=== PATIENT | female | born 1985 | race Caucasian/White ===

== ENCOUNTER → 2016-10-13 | Outpatient (CLI) | payer MEDICARE, OTHER ==
[2015-08-04 22:30] VITALS: BP 137/76
[~2016-10-13] MED LIST: DIPH25CA58 PO; DIVA500T9 PO; MIRT15TA3 PO; TRAZ50TA15 PO
--- NOTE | 2016-10-13 12:03 | KCIC ---
PROCEDURE Abdomen ultrasound HISTORY Diffuse abdominal pain COMPARISON None FINDINGS Multiple sonographic images of the abdomen are submitted. Exam is limited due to patient's body habitus. Pancreas is not well visualized due to bowel gas, pancreatic head visualized. Common bile duct near the head of the pancreas is estimated on the order 1.2 centimeters. There is coarsening of the hepatic echotexture. Right lobe of the liver measured 15.9 centimeters longitudinal. There may be intrahepatic biliary ductal dilatation although poorly demonstrated. There are echogenic non shadowing foci in the gallbladder lumen likely due to non shadowing gallstones. Gallbladder wall thickness is within normal limits. Gallbladder is not dilated. There is no significant pericholecystic fluid demonstrated. Technologist reports a positive sonographic Pettit's sign. Right kidney measured 4 by 10.2 x 3.8 centimeters, no hydronephrosis. Visualized abdominal aortic caliber is within normal limits up to 1.9 centimeters. There is segmental visualization of the inferior vena cava. Spleen measured 12.2 centimeters. Left kidney measured 9.9 x 4.9 by 4 centimeters, no hydronephrosis. No free fluid is demonstrated. IMPRESSION 1. Exam is limited due to patient's body habitus and bowel gas. There appears to be extrahepatic and possibly intrahepatic biliary ductal dilatation. Echogenic non shadowing foci in the gallbladder lumen are likely due to gallstones. There is no significant pericholecystic fluid or gallbladder wall thickening although technologist reports a positive sonographic Pettit's sign. 2. There is hepatic steatosis. Electronically signed by: Nikita Hurst MD (Oct 13, 2016 12:02:02)
== END | disposition home or self-care (01) ==
LOC: KCIC US 08:43
PROVIDERS: ATTEND Family Medicine
DX: R10.9 Unspecified abdominal pain (principal); K76.0 Fatty (change of) liver, not elsewhere classified
CPT/HCPCS: 76700

== ENCOUNTER → 2017-05-04 | Outpatient (CLI) | payer MEDICARE, OTHER ==
[2015-08-04 22:30] VITALS: BP 137/76
--- NOTE | 2017-05-04 11:01 | RAD ---
MRI abdomen Indication: Abdominal pain. No history of surgeries. Ultrasound abdomen from 10/13/2016 showed questionable biliary ductal dilation and gallstones. Technique: Axial in and out of phase, axial and coronal T2, axial and coronal T2 fat sat weighted image sequences were obtained without IV contrast. 2-D and 3-D MRCP performed with respiratory gating. Comparison: Previous ultrasound of abdomen from 10/13/2016 Findings: Heart is normal in size. Trace bilateral pleural effusions. No pericardial effusion. There is no significant signal drop on out of phase imaging when compared to in phase to suggest hepatic steatosis. The liver is normal in morphology without abnormal T2 signal. Spleen is mildly enlarged in size measuring 14 cm without abnormal T2 signal. Gallstone noted. No pericholecystic fluid or gallbladder wall thickening. The other is nondistended. There is no intrahepatic biliary duct dilation. CBD measures 5 mm with smooth distal tapering without filling defects to suggest obstructing stones. Adrenal glands show no nodularity. T2 corticomedullary differentiation is preserved in the kidneys. Pancreas demonstrate no T2 signal abnormality. No pancreatic duct dilation. No peripancreatic inflammatory changes or fluid collections. Intraosseous hemangioma within T4 vertebral body. No suspicious T2 signal in the bones. Impression: 1. Cholelithiasis without acute cholecystitis. 2. No intrahepatic or extrahepatic biliary duct dilation. No choledocholithiasis. 3. Mild splenomegaly, nonspecific.
== END | disposition home or self-care (01) ==
LOC: MRI 07:48
PROVIDERS: ATTEND Internal Medicine Gastroenterology
DX: K80.20 Calculus of gallbladder without cholecystitis without obstruction (principal); R16.1 Splenomegaly, not elsewhere classified; J90 Pleural effusion, not elsewhere classified; R93.8 Abnormal findings on diagnostic imaging of other specified body structures
CPT/HCPCS: 74181

== ENCOUNTER 2017-06-21 06:06 | Observation (INO) | payer MEDICARE, OTHER ==
[~2017-06-21] VITALS: Ht 167.6 cm; Wt 118.0 kg
[2017-06-21] VITALS (10 sets, daily range): BP systolic 102–142; BP diastolic 57–85
[~2017-06-21 06:06] MED LIST changes: +ACET650T26 PO; +FENO150C3 PO; +FLUT16SP NS; +HYDR50TA PO; +LEVO1TAB33 PO; +MUPI22OI2 TP; +OMEP20TA8 PO; +PALI117D IM; +TOPI100T8 PO; +ZIPR40CA3 PO
[2017-06-21] MEDS ORDERED: HYDROmorphone 2 MG/ML VIAL IV PRN ×2 (07:00→09:00)
[2017-06-21] MEDS ORDERED: fentaNYL PF VIAL 100 MCG/2 ML VIAL IV PRN ×2 (07:00)
[2017-06-21] MEDS ORDERED: IV RINGERS,LACTATED 1000ML 1,000 ML IV SCH (07:00)
[2017-06-21] MEDS ORDERED: PROCHLORPERAZINE 10 MG/2 ML VIAL. IV PRN (07:00)
[2017-06-21] MEDS ORDERED: MORPHINE SULFATE 4 MG/ML DISP.SYRIN. IV PRN (07:00)
[2017-06-21] MEDS ORDERED: LIDOCAINE 1% PF 2 ML VIAL. ID PRN (07:00)
[2017-06-21] MEDS ORDERED: ONDANSETRON PF 4 MG/2 ML VIAL. ONE (07:17)
[2017-06-21] MEDS ORDERED: LIDOCAINE 2% PF Vial for OR 5 ML VIAL. ONE (07:17)
[2017-06-21] MEDS ORDERED: MIDAZOLAM HCL/PF 2 MG/2 ML VIAL. ONE (07:17)
[2017-06-21] MEDS ORDERED: DEXAMETHASONE SOD PHOS 20 MG/5 ML VIAL. ONE (07:17)
[2017-06-21] MEDS ORDERED: PROPOFOL 20 ML IV ONE (07:17)
[2017-06-21] MEDS ORDERED: ROCURONIUM 50 MG/5 ML VIAL. ONE (07:18)
[2017-06-21] MEDS ORDERED: fentaNYL PF VIAL 100 MCG/2 ML VIAL ONE (07:18)
[2017-06-21] MEDS ORDERED: SURGICEL HEMOSTAT 4X8 EACH. ONE (07:23)
[2017-06-21] MEDS ORDERED: BUPIVAC MPF-EPI 0.5%-1:200000 30 ML VIAL. ONE (07:23)
[2017-06-21] MEDS ORDERED: IOHEXOL 300 MG/ML 50 ML VIAL. ONE (07:23)
[2017-06-21 07:42] LABS: NEG OBC UR NEG; POS OBC UR POS
[2017-06-21] MEDS ORDERED: ESMOLOL 100 MG/10 ML VIAL. IV ONE (08:06)
[2017-06-21] MEDS ORDERED: SEVOFLURANE 61 TO 120 MINUTES. IH ONE (08:25)
[2017-06-21] MEDS ORDERED: GLYCOPYRROLATE 1 MG/5 ML VIAL. ONE (08:31)
[2017-06-21] MEDS ORDERED: NEOSTIGMINE 10 MG/10 ML VIAL. ONE (08:31)
--- NOTE | 2017-06-21 08:31 | RAD ---
EXAM: Intraoperative cholangiogram. HISTORY: Intraoperative cholangiogram with cholecystectomy. COMPARISON: None. FINDINGS: 2 fluoroscopic images are obtained intraoperatively during injection of the cystic duct remnant after cholecystectomy. There are no filling defects to suggest retained stones. The common duct is not dilated. Fluoroscopy time 0.3 minutes. IMPRESSION: No evidence of retained stones.
[2017-06-21] MEDS ORDERED: KETOROLAC 30 MG/ML INJ FOR OR. INJ ONE (08:34)
--- NOTE | 2017-06-21 08:50 | PDOC4 ---
Operative Note Operative Note Operative Note: Preoperative Diagnosis: Symptomatic cholelithiasis Postoperative Diagnosis: Same Procedure: Laparoscopic cholecystectomy with intraoperative cholangiogram Surgeons: Gaudencio Anesthesia: GenBelinda Estimated Blood Loss: 10 mL Specimen: Gallbladder to pathology Drains: None Complications: None Indications: The patient is a 32-year-old female who is been experiencing recurrent upper abdominal pain consistent with biliary colic. Her evaluation identified gallstones. Surgical treatment was offered by means of a laparoscopic cholecystectomy. The risks of surgery were discussed which include bleeding, infection, bile duct injury, bile leak, pain, the potential for additional surgeries or procedures. The patient understands and would like to proceed. Description: The patient was taken to the operating room and laid supine on the operating table. General anesthesia was performed. The abdomen was prepped with ChloraPrep and draped in a standard surgical fashion. A small infraumbilical incision was made with a scalpel. The Veress needle was then inserted and a pneumoperitoneum was then created. A 5 mm trocar was then inserted and the laparoscope was introduced. In the upper midabdomen a 5 mm trocar was inserted and in the right upper quadrant two 2.3 mm mini lap graspers were inserted. The gallbladder was retracted cephalad. The cystic duct was dissected free from surrounding tissues. One clip was placed on the duct near the gallbladder junction. An opening was made in the duct and a cholangiocatheter placed within and secured with a clip. Using contrast dye and fluoroscopy an intraoperative cholangiogram was performed that appeared unremarkable. The clip and catheter were then withdrawn. Three clips were placed on the cystic duct and it was divided. The cystic artery was then identified, dissected free, doubly clipped and divided as well. The gallbladder was then mobilized away from the liver with cautery. The umbilical 5 millimeter trocar was exchanged for an 11 millimeter trocar. The gallbladder was then placed in an endoscopic bag and extracted at the umbilical trocar site. The fascia there was closed with an 0 Vicryl suture. All blood and irrigation fluid was suctioned and hemostasis was good. The remaining ports were removed and the pneumoperitoneum was relieved. The skin incisions were injected with half percent Marcaine with epinephrine, and all were closed using 4-0 Monocryl suture. Steri-Strips and dressings were then applied. The patient tolerated the procedure well and was sent to the recovery room in stable condition. At the end of the case all counts were correct. LUDWIN JONES MD Jun 21, 2017 08:50
[2017-06-21] MEDS ORDERED: ONDANSETRON PF 4 MG/2 ML VIAL. IV PRN (09:00)
[2017-06-21] MEDS ORDERED: DEXTROSE 50% 25 GM / 50ML DISP.SYRIN. IV PRN (09:00)
[2017-06-21] MEDS ORDERED: KETOROLAC 30 MG/ML INJ. IV PRN (09:00)
[2017-06-21] MEDS ORDERED: LEVONORGESTREL ETH ESTRADIOL PO SCH (09:00)
[2017-06-21] MEDS ORDERED: 0.9 % SODIUM CHLORIDE 10 ML DISP.SYRIN. IV PRN (09:00)
[2017-06-21] MEDS: ZIPRASIDONE 20 MG CAPSULE PO SCH (10:30)
[2017-06-21] MEDS: hydrOXYzine PAMOATE 25 MG CAPSULE PO SCH ×3 (10:30→20:25)
[2017-06-21] MEDS: TOPIRAMATE 100 MG TABLET. PO SCH ×2 (11:00→20:25)
[2017-06-21] MEDS: PANTOPRAZOLE 40 MG TABLET.DR. PO SCH (11:27)
[2017-06-21] MEDS ORDERED: GUAI600T47 PO (11:38)
[2017-06-21] MEDS ORDERED: HYDR25TA PO ×2 (11:38)
[2017-06-21] MEDS ORDERED: POLY17PO29 PO (11:38)
[2017-06-21] MEDS ORDERED: NYST15PO9 TP (11:38)
[2017-06-21] MEDS ORDERED: IBUP-1007 PO (11:38)
[2017-06-21] MEDS ORDERED: CETI10TA16 PO (11:38)
[2017-06-21] MEDS: FENOFIBRATE,MICRONIZED 134 MG CAPSULE PO SCH (12:58)
[2017-06-21] MEDS: HYDROcodone/APAP 5/325MG 1 TAB TABLET PO PRN ×3 (12:58→20:25)
[2017-06-21] MEDS: FLUTICASONE 50MCG/NASAL SPRAY 16GM BOTTLE. NS SCH (12:59)
[2017-06-21] MEDS ORDERED: FLU VACC QS2017-18 (36MOS+)/PF 0.5 ML SYRINGE. VAX IM ONE (13:00)
[2017-06-21] MEDS: IV RINGERS,LACTATED 1000ML 1,000 ML IV SCH (13:00)
[2017-06-22] MEDS: IV RINGERS,LACTATED 1000ML 1,000 ML IV SCH ×2 (00:48→11:40)
[2017-06-22 03:00] VITALS: BP 117/53
[2017-06-22] MEDS: HYDROcodone/APAP 5/325MG 1 TAB TABLET PO PRN ×3 (03:55→10:04)
[2017-06-22 07:00] VITALS: BP 124/70
[2017-06-22] MEDS: ZIPRASIDONE 20 MG CAPSULE PO SCH (09:01)
[2017-06-22] MEDS: FENOFIBRATE,MICRONIZED 134 MG CAPSULE PO SCH (09:01)
[2017-06-22] MEDS: PANTOPRAZOLE 40 MG TABLET.DR. PO SCH (09:01)
[2017-06-22] MEDS: hydrOXYzine PAMOATE 25 MG CAPSULE PO SCH (09:01)
[2017-06-22] MEDS: TOPIRAMATE 100 MG TABLET. PO SCH (09:01)
[2017-06-22] MEDS: FLUTICASONE 50MCG/NASAL SPRAY 16GM BOTTLE. NS SCH (09:05)
--- NOTE | 2017-06-22 10:14 | PDOC ---
CARMELO ALAS VACUUM WORKER 06/22/17 1014: SURGICAL PROGRESS NOTE Subjective tolerating diet incisional pain no n/v Vital Signs Vital Signs Date Time Temp Pulse Resp B/P (MAP) Pulse Ox O2 Delivery O2 Flow Rate FiO2 06/22/17 10:04 Room Air 06/22/17 07:00 98.1 82 18 124/70 (88) 98 98.1 06/21/17 09:07 10 I&O Intake and Output 06/22/17 07:00 Intake Total 4798 ml Output Total 135 ml Balance 4663 ml Intake Oral 760 ml IV Total 3010 ml Other 1028 ml Output Urine Total 125 ml Estimated Blood Loss 10 ml # Voids 8 General: Alert, Oriented X3, Cooperative, No acute distress Abdomen: Soft, Other (lap site dressings intact, incisional TTP) Labs Laboratory Tests Test 06/21/17 06:40 06/21/17 11:32 06/21/17 16:53 06/21/17 21:34 Urine Test Negative (NEG) Glucose (Fingerstick) 103 mg/dL (70-99) 140 mg/dL (70-99) 112 mg/dL (70-99) Test 06/22/17 07:40 Glucose (Fingerstick) 80 mg/dL (70-99) Laboratory Tests Test 06/21/17 11:32 06/21/17 16:53 06/21/17 21:34 06/22/17 07:40 Glucose (Fingerstick) 103 mg/dL (70-99) 140 mg/dL (70-99) 112 mg/dL (70-99) 80 mg/dL (70-99) Problem List s/p lap daniel DC home FU 2 weeks Problems: LUDWIN JONES MD 06/22/17 1223: SURGICAL PROGRESS NOTE Assessment/Plan Agree with above Problems: CARMELO ALAS APRN Jun 22, 2017 10:14 LUDWIN JONES MD Jun 22, 2017 12:23
[2017-06-22] MEDS ORDERED: HYDR-971 PO (10:27)
[2017-06-22 11:00] VITALS: BP 115/72
--- NOTE | 2017-06-22 14:22 | PATHOLOGY ---
PATHOLOGY REPORT * * * * * * * * FINAL DIAGNOSIS: Gallbladder, laparoscopic cholecystectomy: - Cholesterolosis. - Chronic cholecystitis. COMMENT: There are no calculi identified within the gallbladder lumen or specimen container. There is no evidence of malignancy. (JPM:; 06/22/2017) REPORT ELECTRONICALLY SIGNED BY: Gary Lemons M.D. DATE/TIME: 06/22/2017 14:21 * * * * * * * * GROSS PATHOLOGY: Received in formalin labeled "Olivia Paulson, gallbladder sac with contents," is a 6.0 x 2.5 x 1.8 cm, intact gallbladder with light pink to heath, highly vascular serosal surfaces. Opening the gallbladder reveals a green, velvety mucosa, rippled with yellow highlights, and an average wall thickness of 0.2 cm. Calculi are not present (upon filtration of the specimen container and contents) and no masses are noted grossly. Medical Office Assistant sections from the body and fundus are submitted along with the proximal margin in cassette A1. (TSD; 06/21/2017) INITIAL CPT CODE(S): A; 22580 Professional services performed [place] [facility] [address] Technical services performed by [facility] at [address] [place] [address]. SPECIMEN(S) RECEIVED: A.Gallbladder sac with contents CLINICAL HISTORY: Gallstones PATIENT: OLIVIA PAULSON /AGE: 601/13/1985 (Age: 32) PATIENT #: [id number] ALT CASE #: SPECIMEN COLLECTION DATE: 06/21/2017 SPECIMEN RECEIVED DATE: 06/21/2017 [facility] - [address] [place] [address] - PHONE: [phone] * * * END OF REPORT * * *
--- NOTE | 2017-06-28 12:00 | PDOC3 ---
Discharge Summary Date of Admission: Jun 21, 2017 Date of Discharge: Jun 22, 2017 Follow-Up: Other (2 weeks) Admitting Diagnosis comment: symptomatic cholelithiasis Problems: FINAL DIAGNOSIS symptomatic cholelithiasis Brief Hospital Course Ms. Fox is a 32 old female who presented with symptomatic cholelithiasis. She underwent laparoscopic cholecystectomy with intraoperative cholangiogram. Postoperatively tolerating diet, ambulating, and urinating. Ready for discharge home. CONDITION AT DISCHARGE: Stable Discharge Medications Current Medications Fentanyl Citrate (Fentanyl 2ml Vial) 25 mcg PRN Q5MIN PRN IV MILD PAIN; Start 06/21/17 at 07:00; Stop 06/21/17 at 13:10; Status DC Fentanyl Citrate (Fentanyl 2ml Vial) 50 mcg PRN Q5MIN PRN IV MODERATE PAIN Last administered on 06/21/17 09:19; Start 06/21/17 at 07:00; Stop 06/21/17 at 13:10; Status DC Morphine Sulfate 1 mg PRN Q10MIN PRN IV SEVERE PAIN; Start 06/21/17 at 07:00; Stop 06/21/17 at 13:13; Status DC Ringer's Solution 1,000 ml @ 30 mls/hr Q24H IV Last administered on 06:49; Start 06/21/17 at 07:00; Stop 06/21/17 at 18:59; Status DC Lidocaine HCl (Xylocaine-Mpf 1% Vial) 2 ml PRN 1X PRN ID PRIOR TO IV START; Start 06/21/17 at 07:00; Stop 06/21/17 at 13:11; Status DC Hydromorphone HCl (Dilaudid) 0.5 mg PRN Q10MIN PRN IV SEV PAIN, Second choice; Start 06/21/17 at 07:00; Stop 06/21/17 at 13:11; Status DC Prochlorperazine Edisylate (Compazine) 5 mg PACU PRN PRN IV NAUSEA, MRX1; Start 06/21/17 at 07:00; Stop 06/21/17 at 13:13; Status DC Levofloxacin/ Dextrose 150 ml @ 100 mls/hr 1X PREOP PRN IV PRIOR TO PROCEDURE Last administered on 06/21/17 07:49; Start 06/21/17 at 06:00; Stop 06/21/17 at 13:15; Status DC Dexamethasone Sodium Phosphate (Decadron) 20 mg STK-MED ONCE .ROUTE ; Start at 07:17; Stop 06/21/17 at 07:18; Status DC Ondansetron HCl (Zofran) 4 mg STK-MED ONCE .ROUTE ; Start 06/21/17 at 07:17; Stop 06/21/17 at 07:18; Status DC Propofol 20 ml @ As Directed STK-MED ONCE IV ; Start 06/21/17 at 07:17; Stop 06/21/17 at 07:18; Status DC Lidocaine HCl (Lidocaine Pf 2% Vial) 5 ml STK-MED ONCE .ROUTE ; Start 06/21/17 at 07:17; Stop 06/21/17 at 07:18; Status DC Midazolam HCl (Versed) 2 mg STK-MED ONCE .ROUTE ; Start 06/21/17 at 07:17; Stop 06/21/17 at 07:18; Status DC Fentanyl Citrate (Fentanyl 2ml Vial) 100 mcg STK-MED ONCE .ROUTE ; Start at 07:18; Stop 06/21/17 at 07:19; Status DC Rocuronium [place] (Zemuron) 50 mg STK-MED ONCE .ROUTE ; Start 06/21/17 at 07: 18; Stop 06/21/17 at 07:19; Status DC Iohexol (Omnipaque 300 Mg/ml) 50 ml STK-MED ONCE .ROUTE Last administered on 07:26; Start 06/21/17 at 07:23; Stop 06/21/17 at 07:24; Status DC Bupivacaine HCl/ Epinephrine Bitart (Sensorcain-Mpf Epi 0.5%-1:[id number]) 30 ml STK -MED ONCE .ROUTE Last administered on 06/21/17 07:26; Start 06/21/17 at 07: 23; Stop 06/21/17 at 07:24; Status DC Cellulose 1 each STK-MED ONCE .ROUTE ; Start 06/21/17 at 07:23; Stop 06/21/17 at 07:24; Status DC Esmolol HCl (Brevibloc) 100 mg STK-MED ONCE IV ; Start 06/21/17 at 08:06; Stop 06/21/17 at 08:07; Status DC Sevoflurane (Ultane) 60 ml STK-MED ONCE IH ; Start 06/21/17 at 08:25; Stop at 08:26; Status DC Neostigmine Methylsulfate (Bloxiverz) 10 mg STK-MED ONCE .ROUTE ; Start at 08:31; Stop 06/21/17 at 08:32; Status DC Glycopyrrolate (Robinul) 1 mg STK-MED ONCE .ROUTE ; Start 06/21/17 at 08:31; Stop 06/21/17 at 08:32; Status DC Ketorolac Tromethamine (Toradol For Or Only) 30 mg STK-MED ONCE INJ ; Start at 08:34; Stop 06/21/17 at 08:35; Status DC Sodium Chloride (Normal Saline Flush) 3 ml QSHIFT PRN IV AFTER MEDS AND BLOOD DRAWS; Start 06/21/17 at 09:00; Stop 06/22/17 at 14:59; Status DC Dextrose (Dextrose 50%-Water Syringe) 12.5 gm PRN Q15MIN PRN IV SEE COMMENTS; Start 06/21/17 at 09:00; Stop 06/22/17 at 14:59; Status DC Acetaminophen/ Hydrocodone Bitart (Lortab 5/325) 1 tab PRN Q4HRS PRN PO MILD PAIN Last administered on 06/22/17 03:55; Start 06/21/17 at 09:00; Stop at 14:59; Status DC Acetaminophen/ Hydrocodone Bitart (Lortab 5/325) 2 tab PRN Q4HRS PRN PO MODERATE PAIN, SEVERE PAIN Last administered on 06/22/17 10:04; Start at 09:00; Stop 06/22/17 at 14:59; Status DC Ketorolac Tromethamine (Toradol) 30 mg PRN Q6HRS PRN IV MODERATE PAIN Last administered on 06/21/17 15:36; Start 06/21/17 at 09:00; Stop 06/22/17 at 14 :59; Status DC Hydromorphone HCl (Dilaudid) 0.2 mg PRN Q1HR PRN IV SEVERE PAIN; Start at 09:00; Stop 06/22/17 at 14:59; Status DC Ondansetron HCl (Zofran) 4 mg PRN Q6HRS PRN IV NAUESA, 1ST CHOICE Last administered on 06/21/17 15:33; Start 06/21/17 at 09:00; Stop 06/22/17 at 14 :59; Status DC Ringer's Solution 1,000 ml @ 75 mls/hr [id number] IV Last administered on 00:48; Start 06/21/17 at 09:00; Stop 06/22/17 at 14:59; Status DC Fluticasone Propionate (Flonase) 2 spray DAILY NS Last administered on 09:05; Start 06/21/17 at 11:00; Stop 06/22/17 at 14:59; Status DC Topiramate (Topamax) 100 mg BID PO Last administered on 06/22/17 09:01; Start 06/21/17 at 11:00; Stop 06/22/17 at 14:59; Status DC Fenofibrate (Lofibra) 134 mg DAILY PO Last administered on 06/22/17 09:01; Start 06/21/17 at 11:00; Stop 06/22/17 at 14:59; Status DC Hydroxyzine Pamoate (Vistaril) 50 mg TID PO Last administered on 06/22/17 09: 01; Start 06/21/17 at 10:30; Stop 06/22/17 at 14:59; Status DC Non-Formulary Medication 1 each DAILY PO ; Start 06/21/17 at 09:00; Status UNV Pantoprazole Sodium (Protonix) 40 mg BIDAC PO Last administered on 06/22/17 09:01; Start 06/21/17 at 16:30; Stop 06/22/17 at 14:59; Status DC Ziprasidone (Geodon) 40 mg DAILY PO Last administered on 06/22/17 09:01; Start 06/21/17 at 10:30; Stop 06/22/17 at 14:59; Status DC Influenza Virus Vaccine Quadrival (Fluarix Quad [id number] Syringe) 0.5 ml ONCE ONCE VAX IM Last administered on 06/22/17 09:06; Start 06/21/17 at 13:00; Stop 06/21/17 at 13:01; Status DC Active Scripts Active Reported Miralax (Polyethylene Glycol 3350) 17 Gm Powd.pack 1 Packet PO PRN DAILY PRN Nystatin 15 Gm Powder 1 Juan TP PRN TID PRN Mucinex (Guaifenesin) 600 Mg Tablet.er 1 Tab PO PRN BID PRN Ibuprofen 600 Mg Tablet 600 Mg PO PRN Q8HRS PRN Hydroxyzine Hcl 25 Mg Tablet 50 Mg PO BIDPCLD Hydroxyzine Hcl 25 Mg Tablet 1 Tab PO DAILY06 Cetirizine Hcl 10 Mg Tablet 1 Tab PO DAILY Fenofibrate 150 Mg Capsule 134 Mg PO DAILY Mupirocin Ointment (Mupirocin) 22 Gm Oint...g. 1 Juan TP PRN TID PRN Omeprazole 20 Mg Tablet.dr 20 Mg PO BID Fluticasone Propionate Nasal [place] (Fluticasone Propionate) 16 Gm [place].susp 2 [place] NS DAILY Levora-28 (Levonorgestrel-Eth Estradiol) 1 Each Tablet 1 Each PO DAILY Mapap Arthritis Pain (Acetaminophen) 650 Mg Tablet.er 650 Mg PO PRN PRN Topiramate 100 Mg Tablet 100 Mg PO BID Invega Sustenna (Paliperidone Palmitate) 117 Mg/0.75 Ml Disp.syrin 117 Mg IM QMONTH Ziprasidone Hcl 40 Mg Capsule 40 Mg PO BID Allergies Allergies Coded Allergies Type Severity Reaction Last Updated Verified Penicillins Allergy Intermediate Unknown 06/21/17 Yes coconut Allergy Unknown 06/21/17 Yes Disposition/Orders: D/C to Home CARMELO ALAS APRN Jun 28, 2017 11:59
== END 2017-06-22 14:30 | disposition home or self-care (01) ==
LOC: SURG 06:06 → EDSTATUS 07:30 → 4 NORTH 08:50
PROVIDERS: ADMIT Surgery; ATTEND Surgery
DX: K80.20 Calculus of gallbladder without cholecystitis without obstruction (principal)
CPT/HCPCS: 47563; 74300; 81025; 82962; 88304; 90471; 90686; 96374; 96375; C1769; G0378; G0379; J1100; J1885; J1956; J2250; J2405; J2704; J2710; J3010; J3490; J7030; J7120; Q0177; Q9967; J0780; J2001